=== PATIENT | female | born 1975 | race Hispanic/Latino ===

== ENCOUNTER 2018-06-26 16:31 | Inpatient (IN) | payer MEDICAID ==
[2018-06-26 16:38] VITALS: O2SAT 100
--- NOTE | 2018-06-26 17:29 | C.PDOC ---
History Of Present Illness 43 year old female was transferred from [place] for ETOH abuse. The patient offers no medical complaints at this time. In the ED the patient is resting comfortably. Time Seen by Provider: 06/26/18 16:39 Chief Complaint (Nursing): Psychiatric Evaluation History Per: Patient History/Exam Limitations: no limitations Recent travel outside of the [place]: No Past Medical History Reviewed: Historical Data, Nursing Documentation, Vital Signs Vital Signs: Last Vital Signs Temp 99.7 F H 06/26/18 16:36 Pulse 108 H 06/26/18 16:36 Resp 20 06/26/18 17:06 BP 126/90 06/26/18 16:36 Pulse Ox 100 06/26/18 16:36 Family History: States: Unknown Family Hx - Social History Hx Alcohol Use: Yes Hx Substance Use: No Review Of Systems Except As Marked, All Systems Reviewed And Found Negative. Neurological: Positive for: Other (ETOH abuse. ) Physical Exam - Physical Exam Appears: Non-toxic, Toxic Skin: Normal Color, Warm, Dry Head: Atraumatic, Normacephalic Eye(s): bilateral: Normal Inspection, PERRL, EOMI Nose: Normal Oral Mucosa: Moist Neck: Supple Chest: Symmetrical Cardiovascular: Rhythm Regular, No Murmur Respiratory: Normal Breath Sounds, No Rales, No Rhonchi, No Wheezing Gastrointestinal/Abdominal: Normal Exam, Soft, No Tenderness Extremity: Bilateral: Atraumatic, Normal Color And Temperature, Normal ROM Neurological/Psych: Oriented x3, Normal Speech ED Course And Treatment O2 Sat by Pulse Oximetry: 100 (RA) Pulse Ox Interpretation: Normal Medical Decision Making Medical Decision Making: Progress/Update: Patient will be admitted to [facility] to Dr. Alvarez. Disposition Counseled Patient/Family Regarding: Studies Performed, Diagnosis - Disposition Disposition: HOSPITALIZED Disposition Time: 20:00 Condition: FAIR - Clinical Impression Clinical Impression: Alcohol abuse - Scribe Statement The provider has reviewed the documentation as recorded by the Scribe (Diandra Crawford) Provider Attestation: All medical record entries made by the Scribe were at my direction and personally dictated by me. I have reviewed the chart and agree that the record accurately reflects my personal performance of the history, physical exam, medical decision making, and the department course for this patient. I have also personally directed, reviewed, and agree with the discharge instructions and disposition.
--- NOTE | 2018-06-26 20:57 | PCM.BM ---
<MasonFrank - Last Filed: 06/26/18 20:55> Treatment Plan Problems - Problems identified on initial assessmt Anxiety related to alcohol abuse Date Initiated: 06/26/18 Time Initiated: 17:10 Assessment reference: NA Status: Active Suicidal Ideation Date Initiated: 06/26/18 Time Initiated: 17:10 Assessment reference: NA Status: Active Treatment assets and liabiliti Patient Assests: ADL independent, physically healthy Patient Liabilities: substance abuse (Alcohol, Cocaine) - Milieu Protocol Maintain good personal hygiene: daily Encourage regular showers, daily Remind patient to perform daily oral care, every shift Assist patient to perform ADL's Conduct patient checks and document Observation sheet: Q15 minutes Maintain personal safety: every shift Educate patient to report safety concerns to staff, every shift Monitor environment for contraband/sharps Medication safety: Monitor for expected outcome, potential side effects: every shift, Assess barriers to learning: every shift, Assess readiness for medication education: every shift <Asa Cole - Last Filed: 06/28/18 10:04> - Diagnosis (1) Bipolar disorder, current episode depressed, severe, without psychotic features Status: Acute Interventions: 06/28/18 10:04 * Assess/adjust medications daily and /or as needed * See patient on an individual basis 7x/week to assess level of manic behaviors and stability * Discuss risks, benefits, side effects and alternatives of medications * (2) Alcohol abuse Status: Acute Interventions: 06/28/18 10:04 * Assess 7x/week regarding severity of withdrawal * Educate regarding risks, benefits, side effects and alternatives of medications * Use Motivational Interviewing for abstinence * Use CBT for relapse prevention * Medication management for withdrawal symptoms * Encourage medication assisted treatment * <Una Guzmán - Last Filed: 06/28/18 11:27> Family Contact Family involvement: Famliy/SO not involved - Goals for Treatment Patient goals for treatment: "I need a therapist." Discharge/Continuing Care - Education Needs Education Needs: Patient Medication, Patient Coping Skills - Discharge Discharge Criteria: Tolerates medication w/o severe side effects, Free of Suicidal thoughts, Reduction of target symptoms Discharge to:: Home - Treatment Team Participation Discussed with Family/SO: No Was Patient/Family/SO present at Treatment Team Meeting: Yes
[2018-06-27] MEDS ORDERED: Venlafaxine 75 mg ER Cap PO SCH (10:00)
[2018-06-28] MEDS: ATOMOXETINE 60 MG PO SCH (09:45)
--- NOTE | 2018-06-28 09:58 | PCM.PYCHPN ---
Psychiatric Progress Note - Psychiatric Progress Note Patient seen today, length of contact: 15 min Patient Chief Complaint: I was feeling anxious and depressed.' Problems Identified/Issues Discussed: Patient was seen and evaluated, chart reviewed and discussed the staff. Patient still reports of irritability and agitation. As per staff, she continued to yell and curse at the staff. She also picked up fights with the cleaning lady and other staff members. She remained anxious and was found pacing back and forth in the hallways. She is taking medication denies any side effects Symptoms are improving gradually but she needs to stay longer for further stabi lization. Supportive therapy was given Medication Change: Yes Medical Record Reviewed: Yes Mental Status Examination - Cognitive Function Orientation: Person, Place, Situation, Time Memory: Intact Attention: WNL Concentration: Poor Association: WNL Fund of Knowledge: Poor - Mood Mood: Depressed, Anxious - Affect Affect: Broad - Speech Speech: Soft - Formal Thought Process Formal Thought Process: No Impairment - Suicidal Ideation Suicidal Ideation: No - Homicidal Ideation Homicidal Ideation: No Goal/Treatment Plan - Goal/Treatment Plan Need for Continued Stay: Remain at risks for inpatient hospitalization, Discharge may exacerbated symptoms Progress Toward Problem(s) and Goals/Treatment Plan: Bipolar disorder mixed severe without psychotic features CBT Psychoeducation Supportive therapy Trazodone for insomnia Ativan for anxiety Topamax as a mood stabilizer Carbamazepine as a mood stabilizer Effexor for depressed mood Gabapentin for augmentation Continue Strattera
[2018-06-28] MEDS ORDERED: Venlafaxine 150 mg ER Cap PO SCH (10:00)
[2018-06-29] MEDS: Venlafaxine 150 mg ER Cap PO SCH (09:32)
[2018-06-29] MEDS: ATOMOXETINE 60 MG PO SCH (09:32)
[2018-06-29] MEDS ORDERED: Pneumococcal 23-Valent Vaccine IM ONE (10:00)
--- NOTE | 2018-06-29 13:24 | PCM.PYCHPN ---
Psychiatric Progress Note - Psychiatric Progress Note Patient seen today, length of contact: 15 min Patient Chief Complaint: I was feeling anxious.' Problems Identified/Issues Discussed: Patient was seen and evaluated, chart reviewed and discussed the staff. Patient reports some improvement in her irritability and agitation. As per staff, she remained anxious and was found pacing back and forth in the hallways. She denies any auditory or visual hallucinations. She is taking medication denies any side effects Symptoms are improving gradually but she needs to stay longer for further stabilization. She signed a 48 hours notice. Supportive therapy was given Medication Change: Yes Medical Record Reviewed: Yes Mental Status Examination - Cognitive Function Orientation: Person, Place, Situation, Time Memory: Intact Attention: WNL Concentration: Poor Association: WNL Fund of Knowledge: Poor - Mood Mood: Depressed, Anxious - Affect Affect: Broad - Speech Speech: Soft - Formal Thought Process Formal Thought Process: No Impairment - Suicidal Ideation Suicidal Ideation: No - Homicidal Ideation Homicidal Ideation: No Goal/Treatment Plan - Goal/Treatment Plan Need for Continued Stay: Remain at risks for inpatient hospitalization, Discharge may exacerbated symptoms Progress Toward Problem(s) and Goals/Treatment Plan: Bipolar disorder mixed severe without psychotic features CBT Psychoeducation Supportive therapy Trazodone for insomnia Ativan for anxiety Topamax as a mood stabilizer Carbamazepine as a mood stabilizer Effexor for depressed mood Gabapentin for augmentation Continue Yaminittera
[2018-06-30 06:30] VITALS: BP 115/77; PULSE 92; RESP 16; TEMP 97.7
[2018-06-30] MEDS: ATOMOXETINE 60 MG PO SCH (09:06)
[2018-06-30] MEDS: Venlafaxine 150 mg ER Cap PO SCH (09:06)
--- NOTE | 2018-06-30 10:42 | PCM.PYCHDC ---
Mental Status Examination - Mental Status Examination Orientation: Person, Place, Situation, Time Memory: Intact Mood: Neutral Affect: Constricted Speech: Soft Attention: WNL Concentration: WNL Association: WNL Fund of Knowledge: WNL Formal Thought Process: No Impairment Description of patient's judgement and insight: good, fair Psychotic Thoughts and Behaviors: denies any AVH Suicidal Ideation: No Current Homicidal Ideation?: No Discharge Summary - Discharge Note Consultations:: List each consultation separately and include: 1. Reason for request. 2. Findings. 3. Follow-up Summary of Hospital Course include:: 1. Description of specific treatment plan utilized for patients during their course of treatmen. 2. Summarize the time- course for resolution of acute symptoms and/or regressed behaviors. 3. Describe issues identified and worked on during hospitalization. 4. Describe medication utilized. 5. Describe medical problems identified and treated. 6. Reassessment of suicide risk - Diagnosis (1) Bipolar disorder, current episode depressed, severe, without psychotic features Current Visit: Yes Status: Acute (2) Alcohol abuse Current Visit: Yes Status: Acute - Final Diagnosis (DSM 5) Condition upon Discharge: FAIR Disposition: HOME/ ROUTINE Follow-up Treatment Plan: Bipolar disorder mixed severe without psychotic features CBT Psychoeducation Supportive therapy Trazodone for insomnia Ativan for anxiety Topamax as a mood stabilizer Carbamazepine as a mood stabilizer Effexor for depressed mood Gabapentin for augmentation Continue Strattera Prescriptions/Medication Reconciliation: carBAMazepine [TEGretol-XR] 400 mg PO HS [address] Gabapentin [Neurontin] 600 mg PO TID 14 Days tab QUEtiapine [SEROquel] 50 mg PO HS 14 Days tab Topiramate [Topamax] 200 mg PO DAILY #14 tab traZODone [Desyrel] 100 mg PO HS #14 tab Venlafaxine [Effexor XR] 150 mg PO DAILY #14 cer
== END 2018-06-30 12:24 | disposition home or self-care (01) | DRG 753 ==
LOC: C.ER 16:31 → C.5E 16:52 → UNDODISIN 06-28 12:20
PROVIDERS: ADMIT Psychiatry & Neurology Psychiatry; ATTEND Psychiatry & Neurology Psychiatry
PROC: HZ42ZZZ Group Counseling for Substance Abuse Treatment, Cognitive-Behavioral (ICD-10-PCS; principal; 2018-06-26)
PROC: HZ46ZZZ Group Counseling for Substance Abuse Treatment, Psychoeducation (ICD-10-PCS; 2018-06-26)
PROC: GZHZZZZ Group Psychotherapy (ICD-10-PCS; 2018-06-26)
PROC: GZ58ZZZ Individual Psychotherapy, Cognitive-Behavioral (ICD-10-PCS; 2018-06-26)
PROC: GZ56ZZZ Individual Psychotherapy, Supportive (ICD-10-PCS; 2018-06-26)
DX: F31.63 Bipolar disorder, current episode mixed, severe, without psychotic features (principal); F41.9 Anxiety disorder, unspecified; F10.10 Alcohol abuse, uncomplicated; G47.00 Insomnia, unspecified